=== PATIENT | female | born 1970 | race Caucasian/White ===

== ENCOUNTER → 2017-03-06 | Outpatient (CLI) | payer OTHER ==
--- NOTE | 2017-03-06 14:36 | MAMMOGRAPHY REPORT ---
ASPIRATION LEFT BREAST: 03/06/2017 CLINICAL HISTORY: Left 7:00 breast mass. PATIENT CONSENT: The procedure and risks of ultrasound-guided cyst aspiration were discussed in full with the patient. Both oral and written consents were obtained. PROCEDURE DESCRIPTION: With ultrasound guidance, aseptic technique, and 1% lidocaine as a local anest hetic, the mass of concern was aspirated to completion. A small amount of bloody fluid was aspirated and sent to cytology for analysis. Direct pressure was applied to the site immediately post procedu re and hemostasis was achieved. The patient tolerated the procedure without complication. She was g iven wound care instructions. COMPARISON: Comparison is made to exams dated: 03/06/2017 ultrasound, 03/06/2017 mammogram - [facility], 02/14/2017 mammogram, and 08/13/2012 mammogram. IMPRESSION: ASPIRATION Ultrasound guided aspiration of the left 7:00 breast cyst. The aspirated fluid was sent to cytology for analysis. The patient will receive pathology results from her referring provider. Marilin Awan M.D. ah/:03/06/2017 12:07:46 Intake Assessor: Brenda Sheehan, [facility]
--- NOTE | 2017-03-06 14:36 | MAMMOGRAPHY REPORT ---
UNILATERAL LEFT DIGITAL DIAGNOSTIC MAMMOGRAM TOMOSYNTHESIS AND TARGETED LEFT ULTRASOUND: 03/06/2017 CLINICAL HISTORY: The patient was called back from an outside screening mammogram for a left breast a symmetry. TECHNIQUE: Breast tomosynthesis in addition to standard 2D mammography was performed. Spot compress ion left CC and MLO implant displaced 2-D and tomosynthesis images were obtained. COMPARISON: Comparison is made to exams dated: 02/14/2017 mammogram and 08/13/2012 mammogram. Note that the tomosynthesis images from the outside 2017 screening mammogram cannot be viewed; only the 2- D images can be viewed. BREAST COMPOSITION: There are scattered areas of fibroglandular density in the left breast. FINDINGS: Spot compression views from the left breast demonstrate a possible low density round circu mscribed 4 mm mass within the left medial breast middle depth, only seen on the cc tomosynthesis imag es and not clearly seen on the MLO views. This corresponds with the annotated asymmetry described on the prior outside screening mammogram. The remainder of the images demonstrate no suspicious masses , calcifications, or areas of architectural distortion. Targeted ultrasound was performed of the left medial breast in the region of the mammographic asymmet ry seen on one view only. In the left breast at 7:00, approximately 3 cm from the nipple, there is a gently lobulated circumscribed hypoechoic mass with posterior acoustic enhancement. This likely rep resents a cyst although it does not meet all of the sonographic criteria for a cyst. 1-2 echogenic f oci are seen within the mass, which could represent calcifications or a septation. This may correspo nd with the mammographic mass. Recommend ultrasound-guided aspiration for further evaluation. In th e left breast at 10:00, 3 cm from the nipple, there is an oval anechoic benign simple cyst measuring 4 x 4 mm, which is incidentally noted on ultrasound. No suspicious solid masses are evident. IMPRESSION: ACR BI-RADS CATEGORY 4: SUSPICIOUS, TARGETED ULTRASOUND ACR BI-RADS CATEGORY 4: SUSPICIO US Low-density circumscribed 4 mm benign-appearing mass within the left medial breast mammographically. A hypoechoic circumscribed 5 mm mass is seen in the left 7:00 breast on ultrasound, which likely cor responds with the mammographic mass and likely represents a cyst although does not meet all of the so nographic criteria. Recommend ultrasound-guided cyst aspiration for further evaluation. The patient was verbally notified of the results. Aspiration was performed immediately after the [place] gnostic workup. Approximately 10% of breast cancers are not detected with mammography. A negative mammographic report should not delay biopsy if a clinically suggestive mass is present. Marilin Awan M.D. ah/:03/06/2017 12:05:40 Etl Consultant: Brenda Sheehan, [facility] BI-RADS Code: ACR BI-RADS Category 4: Suspicious Ultrasound BI-RADS: ACR BI-RADS Category 4: Suspici ous
== END | disposition home or self-care (01) ==
LOC: C.MAMM 10:58
PROVIDERS: ATTEND Surgery Plastic and Reconstructive Surgery
DX: R92.8 Other abnormal and inconclusive findings on diagnostic imaging of breast (principal); N60.02 Solitary cyst of left breast